=== PATIENT | female | born 1970 | race Caucasian/White ===

== ENCOUNTER 2017-11-03 17:50 | Inpatient (IN) | payer MEDICARE, MEDICAID ==
[~2017-11-03] VITALS: Ht 162.6 cm; Wt 89.9 kg
[~2017-11-03 17:50] MED LIST: BUPR150T8 PO; BUPR8TAB4 SL; IBUP-1986 PO; LEVO40CA PO; ONDA4TAB6 PO; PREG50CA PO; PROP10TA10 PO; VERA180T PO
[2017-11-03] MEDS ORDERED: POTA10TA36 PO (20:00)
[2017-11-03] MEDS ORDERED: TRAZ-218 PO (20:00)
[2017-11-03] MEDS ORDERED: LORA0.5T PO (20:00)
[2017-11-03] MEDS ORDERED: BUPR8TAB4 SL (20:00)
[2017-11-03] MEDS ORDERED: LORazepam 0.5 MG tablet PO PRN (20:05)
[2017-11-03] MEDS ORDERED: mag hydrox/Alum hydrox/simeth 30ml oral suspension PO PRN (22:35)
[2017-11-03] MEDS ORDERED: acetaminophen 325mg tablet PO PRN (22:35)
[2017-11-03] MEDS: traZODone 50mg tablet PO PRN (22:46)
[2017-11-03 23:15] VITALS: BP 127/93
[2017-11-04 08:00] VITALS: BP 119/71
[2017-11-04] MEDS: potassium Cl 20 mEq SR tablet PO SCH (08:11)
[2017-11-04] MEDS: buprenorphine/naloxone 2-0.5mg sublingual tablet SL SCH ×2 (08:11→21:10)
[2017-11-04 09:15] LABS: CLARITY,URINE CLEAR (Clear); COLOR,URINE YELLOW (Yellow); GLUCOSE, URINE NEGATIVE (Neg); KETONES,URINE NEGATIVE (Neg); LEUKOCYTE ESTERASE ,URINE NEGATIVE (Neg); NITRITES, URINE NEGATIVE (Neg); OCCULT BLOOD,URINE NEGATIVE (Neg); PROTEIN,URINE NEGATIVE (Neg); UROBILINOGEN,URINE 0.2 E.U/dL (0.2-1.0)
[2017-11-04 09:17] LABS: HEMOGLOBIN A1C 5.7 % (4.5-6.2)
[2017-11-04 09:23] LABS: UA COLLECTION TYPE CLN CATCH MIDSTREAM
[2017-11-04 09:32] LABS: ALBUMIN 3.6 G/DL (3.4-5.0); ANION GAP 8 (8-16); BLOOD UREA NITROGEN 17 MG/DL (7-18); BUN/CREATININE RATIO 17.9 (6.6-38.0); CALCIUM 8.9 MG/DL (8.5-10.1); CHLORIDE 103 MMOL/L (99-107); CHOL/HDL RATIO 3.2 (0.00-4.99); CHOLESTEROL 153 MG/DL (0-200); CREATININE 0.95 MG/DL (0.40-0.90); GLUCOSE 102 MG/DL (70-104); HDL CHOLESTEROL 48 MG/DL (35-60); LDL CHOLESTEROL 83 MG/DL (50-100); POTASSIUM 3.2 MMOL/L (3.5-5.1); SODIUM 141 MMOL/L (135-145); TOTAL CARBON DIOXIDE 30.5 MMOL/L (24-32); TRIGLYCERIDES 145 MG/DL (20-135); eGFR 63 ML/MIN
[2017-11-04] MEDS: buPROPion SR 150mg tablet PO SCH (12:43)
[2017-11-04] MEDS ORDERED: nicotine 14mg patch - 24hr TD ONE (12:45)
[2017-11-04 19:00] VITALS: BP 117/85
[2017-11-04] MEDS: traZODone 50mg tablet PO PRN (21:09)
[2017-11-05 08:00] VITALS: BP 109/78
[2017-11-05] MEDS: potassium Cl 20 mEq SR tablet PO SCH (08:15)
[2017-11-05] MEDS: buprenorphine/naloxone 2-0.5mg sublingual tablet SL SCH ×2 (08:15→20:46)
[2017-11-05] MEDS: buPROPion SR 150mg tablet PO SCH (08:15)
[2017-11-05] MEDS: nicotine 14mg patch - 24hr TD SCH (08:16)
[2017-11-05] MEDS ORDERED: tuberculin, purif. prot. deriv. 5 units/0.1ml ID ONE (08:30)
[2017-11-05] MEDS ORDERED: buPROPion SR 150mg tablet PO SCH (14:00)
[2017-11-05 19:44] VITALS: BP 117/72
[2017-11-05] MEDS: traZODone 50mg tablet PO PRN (20:45)
[2017-11-06] MEDS: potassium Cl 20 mEq SR tablet PO SCH (07:50)
[2017-11-06] MEDS: buPROPion SR 150mg tablet PO SCH (07:50)
[2017-11-06] MEDS: buprenorphine/naloxone 2-0.5mg sublingual tablet SL SCH ×2 (07:50→20:27)
[2017-11-06] MEDS: nicotine 14mg patch - 24hr TD SCH (07:51)
[2017-11-06 08:00] VITALS: BP 111/77
[2017-11-06] MEDS: buPROPion SR 100mg tab PO SCH (13:46)
[2017-11-06 20:00] VITALS: BP 121/73
[2017-11-06] MEDS: traZODone 50mg tablet PO PRN (20:26)
[2017-11-06] MEDS: magnesium hydroxide 30ml (MOM) UD suspension PO PRN (20:27)
[2017-11-07] MEDS: buPROPion SR 150mg tablet PO SCH (08:19)
[2017-11-07] MEDS: nicotine 14mg patch - 24hr TD SCH (08:19)
[2017-11-07] MEDS: buprenorphine/naloxone 2-0.5mg sublingual tablet SL SCH ×2 (08:19→20:47)
[2017-11-07] MEDS: potassium Cl 20 mEq SR tablet PO SCH (08:19)
[2017-11-07 08:21] VITALS: BP_SYST 109; BP_SYST 132; BP_DIAS 71; BP_DIAS 79
[2017-11-07] MEDS: buPROPion SR 100mg tab PO SCH (13:14)
[2017-11-07 19:44] VITALS: BP 117/72
[2017-11-07] MEDS: traZODone 50mg tablet PO SCH (20:47)
[2017-11-07] MEDS: acetaminophen 325mg tablet PO PRN (20:48)
[2017-11-07] MEDS: magnesium hydroxide 30ml (MOM) UD suspension PO PRN (20:59)
[2017-11-08] MEDS: buPROPion SR 150mg tablet PO SCH (08:23)
[2017-11-08] MEDS: nicotine 14mg patch - 24hr TD SCH (08:25)
[2017-11-08] MEDS: buprenorphine/naloxone 2-0.5mg sublingual tablet SL SCH ×2 (08:25→20:37)
[2017-11-08 08:51] VITALS: BP 93/66
[2017-11-08] MEDS: buPROPion SR 100mg tab PO SCH (16:12)
[2017-11-08 19:40] VITALS: BP 117/68
[2017-11-08] MEDS ORDERED: polyethylene glycol 3350 17gm powd pack PO PRN (20:10)
[2017-11-08] MEDS: docusate sod 100mg capsule PO SCH (20:37)
[2017-11-08] MEDS: traZODone 50mg tablet PO SCH (20:38)
[2017-11-08] MEDS: acetaminophen 325mg tablet PO PRN (20:38)
[2017-11-09 08:04] VITALS: BP 114/68
[2017-11-09] MEDS: buPROPion 100mg tablet PO SCH (08:09)
[2017-11-09] MEDS: nicotine 14mg patch - 24hr TD SCH (08:09)
[2017-11-09] MEDS: buprenorphine/naloxone 2-0.5mg sublingual tablet SL SCH ×2 (08:09→21:21)
[2017-11-09] MEDS: buPROPion SR 100mg tab PO SCH (13:07)
[2017-11-09] MEDS: pregabalin 25mg capsule PO SCH ×2 (14:51→21:21)
[2017-11-09 19:53] VITALS: BP 129/76
[2017-11-09] MEDS: docusate sod 100mg capsule PO SCH (21:21)
[2017-11-09] MEDS: traZODone 50mg tablet PO SCH (21:21)
[2017-11-10 08:00] VITALS: BP 101/65
[2017-11-10] MEDS: buprenorphine/naloxone 2-0.5mg sublingual tablet SL SCH ×2 (08:23→21:09)
[2017-11-10] MEDS: pregabalin 25mg capsule PO SCH ×3 (08:23→21:05)
[2017-11-10] MEDS: nicotine 14mg patch - 24hr TD SCH (08:23)
[2017-11-10] MEDS: buPROPion 100mg tablet PO SCH (08:24)
[2017-11-10] MEDS: buPROPion SR 100mg tab PO SCH (13:16)
[2017-11-10] MEDS: magnesium hydroxide 30ml (MOM) UD suspension PO PRN (13:30)
[2017-11-10 19:56] VITALS: BP 117/78
[2017-11-10] MEDS: docusate sod 100mg capsule PO SCH (21:05)
[2017-11-10] MEDS: traZODone 50mg tablet PO SCH (21:06)
[2017-11-11 08:00] VITALS: BP 107/61
[2017-11-11] MEDS: pregabalin 25mg capsule PO SCH ×3 (08:25→20:45)
[2017-11-11] MEDS: buPROPion 100mg tablet PO SCH (08:25)
[2017-11-11] MEDS: buprenorphine/naloxone 2-0.5mg sublingual tablet SL SCH ×2 (08:26→20:46)
[2017-11-11] MEDS: nicotine 14mg patch - 24hr TD SCH (08:28)
[2017-11-11] MEDS: buPROPion SR 100mg tab PO SCH (13:23)
[2017-11-11 20:23] VITALS: BP 148/94
[2017-11-11] MEDS: docusate sod 100mg capsule PO SCH (20:44)
[2017-11-11] MEDS: traZODone 50mg tablet PO SCH (20:46)
[2017-11-12 08:00] VITALS: BP 102/68
[2017-11-12] MEDS: pregabalin 25mg capsule PO SCH ×3 (08:30→21:22)
[2017-11-12] MEDS: buprenorphine/naloxone 2-0.5mg sublingual tablet SL SCH ×2 (08:31→21:22)
[2017-11-12] MEDS: buPROPion 100mg tablet PO SCH (08:31)
[2017-11-12] MEDS: nicotine 14mg patch - 24hr TD SCH (08:31)
[2017-11-12] MEDS: buPROPion SR 100mg tab PO SCH (14:32)
[2017-11-12 19:45] VITALS: BP 128/77
[2017-11-12] MEDS: traZODone 50mg tablet PO SCH (21:21)
[2017-11-12] MEDS: docusate sod 100mg capsule PO SCH (21:22)
[2017-11-13] MEDS: nicotine 14mg patch - 24hr TD SCH (07:49)
[2017-11-13] MEDS: buprenorphine/naloxone 2-0.5mg sublingual tablet SL SCH ×2 (07:50→20:40)
[2017-11-13] MEDS: buPROPion 100mg tablet PO SCH (07:51)
[2017-11-13] MEDS: pregabalin 25mg capsule PO SCH ×3 (07:51→20:36)
[2017-11-13 08:00] VITALS: BP 113/73
[2017-11-13] MEDS: buPROPion SR 100mg tab PO SCH (13:19)
[2017-11-13 19:35] VITALS: BP 134/87
[2017-11-13] MEDS: traZODone 50mg tablet PO SCH (20:35)
[2017-11-13] MEDS: docusate sod 100mg capsule PO SCH (20:38)
[2017-11-14] MEDS ORDERED: PREG100C PO (07:46)
[2017-11-14] MEDS ORDERED: BUPR1FIL5 SL (07:46)
[2017-11-14] MEDS ORDERED: NICO-631 TD (07:46)
[2017-11-14] MEDS ORDERED: TRAZ150T78 PO (07:46)
[2017-11-14] MEDS ORDERED: COL100C PO (07:46)
[2017-11-14] MEDS ORDERED: BUPR200T PO (07:46)
[2017-11-14 08:00] VITALS: BP 105/68
[2017-11-14] MEDS: nicotine 14mg patch - 24hr TD SCH (08:02)
[2017-11-14] MEDS: buPROPion 100mg tablet PO SCH (08:03)
[2017-11-14] MEDS: buprenorphine/naloxone 2-0.5mg sublingual tablet SL SCH (08:03)
[2017-11-14] MEDS: pregabalin 25mg capsule PO SCH ×2 (08:03→12:41)
== END 2017-11-14 13:15 | disposition short-term general hospital (02) | DRG 885 ==
LOC: ADULT MH 17:50
PROVIDERS: ADMIT Psychiatry & Neurology Psychiatry; ATTEND Psychiatry & Neurology Psychiatry
DX: F33.2 Major depressive disorder, recurrent severe without psychotic features (principal); R45.851 Suicidal ideations; F15.20 Other stimulant dependence, uncomplicated; E87.6 Hypokalemia; G57.90 Unspecified mononeuropathy of unspecified lower limb; F12.90 Cannabis use, unspecified, uncomplicated; G89.29 Other chronic pain; F41.9 Anxiety disorder, unspecified; I10 Essential (primary) hypertension; Z72.0 Tobacco use; Z79.899 Other long term (current) drug therapy; Z91.5 Personal history of self-harm; Z88.1 Allergy status to other antibiotic agents; Z83.3 Family history of diabetes mellitus; Z81.1 Family history of alcohol abuse and dependence
CPT/HCPCS: 36415; 80048; 80061; 81003; 83036; 84443

== ENCOUNTER 2017-11-21 09:37 | Emergency (ER) | payer MEDICARE, MEDICAID ==
[~2017-11-21] VITALS: Ht 162.6 cm; Wt 90.9 kg
[~2017-11-21 09:37] MED LIST changes: -BUPR150T8 PO; +BUPR1FIL5 SL; +BUPR200T PO; -BUPR8TAB4 SL; +COL100C PO; -IBUP-1986 PO; -LEVO40CA PO; +NICO-631 TD; -ONDA4TAB6 PO; +PREG100C PO; -PREG50CA PO; -PROP10TA10 PO; +TRAZ150T78 PO; -VERA180T PO
[2017-11-21 09:40] VITALS: BP 134/87
== END 2017-11-21 10:21 | disposition home or self-care (01) ==
LOC: ER 09:38
DX: Z00.8 Encounter for other general examination (principal); Z88.1 Allergy status to other antibiotic agents; Z79.899 Other long term (current) drug therapy
CPT/HCPCS: 46040; 99281